=== PATIENT | female | born 1990 | race Caucasian/White ===

== ENCOUNTER 2017-10-10 06:23 | Day surgery (SDC) | payer MEDICARE, SELFPAY ==
[~2017-10-10] VITALS: Ht 170.2 cm; Wt 76.9 kg
[2017-10-10] MEDS ORDERED: LEVSOD75 PO (07:00)
[2017-10-10] MEDS ORDERED: ADVIL100 MG PO (07:00)
== END 2017-10-10 09:51 | disposition home or self-care (01) ==
LOC: ORSCSDS 06:23
PROVIDERS: Obstetrics & Gynecology
PROC: 0U5F4ZZ Destruction of Cul-de-sac, Percutaneous Endoscopic Approach (ICD-10-PCS; principal; 2017-10-10 07:30)
DX: R10.2 Pelvic and perineal pain (principal); J45.909 Unspecified asthma, uncomplicated; E03.9 Hypothyroidism, unspecified; F41.8 Other specified anxiety disorders; Z79.899 Other long term (current) drug therapy; N80.3 Endometriosis of pelvic peritoneum
CPT/HCPCS: J0171; J0690; J1100; J1885; J2250; J2405; J2710; J3010; J7120

== ENCOUNTER → 2017-12-23 | Outpatient (CLI) | payer MEDICARE, SELFPAY ==
[~2017-12-23] MED LIST: ADVIL100 MG PO; LEVSOD75 PO
[2017-12-23 14:40] LABS: BASOPHILS ABSOLUTE AUTO 0.04 K/mm3 (0.00-0.23); BASOPHILS PERCENT AUTO 0 % (0-2); EOSINOPHILS ABSOLUTE AUTO 0.02 K/mm3 (0.00-0.68); EOSINOPHILS PERCENT AUTO 0 % (0-6); Hematocrit 36.9 % (33.0-51.0); Hemoglobin 12.2 g/dL (11.5-16.0); IMMATURE GRAN ABSOLUTE AUTO 0.04 K/mm3 (0.00-0.10); IMMATURE GRAN PERCENT AUTO 0 % (0-1); LYMPHOCYTES ABSOLUTE AUTO 1.26 K/mm3 (0.84-5.20); LYMPHOCYTES PERCENT AUTO 11 % (21-46); MONOCYTES ABSOLUTE AUTO 0.46 K/mm3 (0.16-1.47); MONOCYTES PERCENT AUTO 4 % (4-13); Mean Corpuscular HGB 28.2 pg (26.0-34.0); Mean Corpuscular HGB Conc 33.1 g/dL (31.5-36.5); Mean Corpuscular Volume 85 fL (80-100); Mean Platelet Volume 12.4 fL (9.1-12.4); NEUTROPHILS ABSOLUTE AUTO 9.34 K/mm3 (1.96-9.15); NEUTROPHILS PERCENT AUTO 84 % (41-73); Platelet Count 203 K/mm3 (150-400); RDW Coefficient Variation 13.3 % (11.7-14.2); RDW Standard Deviation 41.8 fL (35.1-46.3); Red Blood Cell Count 4.33 M/mm3 (3.80-5.20); White Blood Cell Count 11.16 K/mm3 (4.00-11.30)
== END ==
LOC: LAB 13:55 → LAB SHORT 13:55
DX: R53.83 Other fatigue (principal)
CPT/HCPCS: 85025

== ENCOUNTER 2019-12-22 09:49 | Day surgery (SDC) | payer BC, MEDICARE ==
[~2019-12-22 09:49] MED LIST changes: +DICY20 PO
== END 2019-12-22 10:18 | disposition home or self-care (01) ==
LOC: ATC 09:49
DX: K62.5 Hemorrhage of anus and rectum (principal); R10.13 Epigastric pain; E03.9 Hypothyroidism, unspecified; F32.9 Major depressive disorder, single episode, unspecified; Z79.899 Other long term (current) drug therapy; Z88.0 Allergy status to penicillin
CPT/HCPCS: 99211

== ENCOUNTER → 2020-11-08 | Outpatient (CLI) | payer BC, MEDICARE, OTHER ==
[2020-11-08 14:56] LABS: Source, Urine Voided
[2020-11-08 18:44] LABS: Amorphous Heavy (0-Heavy); Bacteria Few /hpf; Red Blood Cells, Urine 0-2 /hpf (0-2); Squamous Epithelial Cells Few /hpf (Few); White Blood Cells, Urine 0-2 /hpf (0-5)
== END | disposition home or self-care (01) ==
LOC: LAB SHORT 14:54 → LAB 14:54
PROVIDERS: Physician Assistant Medical
DX: R30.9 Painful micturition, unspecified (principal)
CPT/HCPCS: 81015; 87086

== ENCOUNTER 2021-08-13 16:41 | Emergency (ER) | payer BC, MEDICARE ==
[~2021-08-13] VITALS: Ht 170.2 cm; Wt 79.4 kg
[2021-08-13 17:46] LABS: BASOPHILS ABSOLUTE AUTO 0.02 K/mm3 (0.00-0.23); BASOPHILS PERCENT AUTO 0 % (0-2); EOSINOPHILS PERCENT AUTO 1 % (0-6); Hematocrit 38.3 % (33.0-51.0); Hemoglobin 12.4 g/dL (11.5-16.0); IMMATURE GRAN ABSOLUTE AUTO 0.02 K/mm3 (0.00-0.10); IMMATURE GRAN PERCENT AUTO 0 % (0-1); LYMPHOCYTES ABSOLUTE AUTO 2.09 K/mm3 (0.84-5.20); LYMPHOCYTES PERCENT AUTO 25 % (21-46); MONOCYTES ABSOLUTE AUTO 0.65 K/mm3 (0.16-1.47); MONOCYTES PERCENT AUTO 8 % (4-13); Mean Corpuscular HGB 27.4 pg (26.0-34.0); Mean Corpuscular HGB Conc 32.4 g/dL (31.5-36.5); Mean Corpuscular Volume 85 fL (80-100); Mean Platelet Volume 11.3 fL (9.1-12.4); NEUTROPHILS ABSOLUTE AUTO 5.43 K/mm3 (1.96-9.15); NEUTROPHILS PERCENT AUTO 65 % (41-73); Platelet Count 223 K/mm3 (150-400); RDW Coefficient Variation 13.2 % (11.7-14.2); RDW Standard Deviation 40.5 fL (35.1-46.3); Red Blood Cell Count 4.53 M/mm3 (3.80-5.20); White Blood Cell Count 8.31 K/mm3 (4.00-11.30)
[2021-08-13 18:13] LABS: Alanine Aminotransfer (ALT/SGP 16 U/L (12-78); Albumin, Blood 4.1 g/dL (3.4-5.0); Albumin/Globulin Ratio 1.1 (0.8-1.8); Alk Phos 88 U/L (50-136); Anion Gap 7 mmol/L (6-16); Aspartate Aminotrans (AST/SGOT 13 U/L (12-37); Bilirubin, Total 0.6 mg/dL (0.1-1.0); Blood Urea Nitrogen 8 mg/dL (8-24); Bun/Creatinine Ratio 10.8 (12.0-20.0); CO2, Blood 23 mmol/L (21-32); Calcium, Blood 9.2 mg/dL (8.5-10.1); Chloride, Blood 107 mmol/L (98-108); Creatinine, Blood 0.74 mg/dL (0.40-1.00); Globulin, Blood 3.6 g/dL (2.2-4.0); Glomerular Filtration Rate >60 (60-); Glucose, Blood 97 mg/dL (70-99); Potassium, Blood 3.7 mmol/L (3.5-5.5); Sodium, Blood 137 mmol/L (136-145); Total Protein, Blood 7.7 g/dL (6.4-8.2)
[2021-08-13 18:23] LABS: Source, Urine Clean Catch
[2021-08-13 18:26] LABS: Beta HCG, Quantitative, Serum 22715 mIU/mL (0-3)
[2021-08-13 18:32] LABS: Appearance, Urine Clear (Clear); Bilirubin, Urine Neg (Neg); Blood, Urine Neg (Neg); Color, Urine Yellow (P-Yellow); Glucose Qualitative, Urine Neg (Neg); Ketones, Urine Neg (Neg); Leukocyte Esterase, Urine Neg (Neg); Nitrite, Urine Neg (Neg); Protein, Urine Neg (Neg); Urobilinogen, Urine NORM (Normal)
== END 2021-08-13 19:08 | disposition home or self-care (01) ==
LOC: ER 16:41
PROVIDERS: Physician Assistant
DX: O26.891 Other specified pregnancy related conditions, first trimester (principal); R10.31 Right lower quadrant pain; Z88.0 Allergy status to penicillin; Z79.899 Other long term (current) drug therapy; Z3A.08 8 weeks gestation of pregnancy
CPT/HCPCS: 36415; 76801; 76817; 80053; 81003; 84702; 85025; 86900; 86901; 99284-25

== ENCOUNTER → 2022-06-17 | Outpatient (CLI) | payer OTHER ==
[~2022-06-17] MED LIST changes: +ONDA4ODT MM; +Protonix40 MG PO
[2022-06-17 15:22] LABS: BASOPHILS ABSOLUTE AUTO 0.04 K/mm3 (0.00-0.23); BASOPHILS PERCENT AUTO 0 % (0-2); EOSINOPHILS ABSOLUTE AUTO 0.07 K/mm3 (0.00-0.68); EOSINOPHILS PERCENT AUTO 1 % (0-6); Hematocrit 33.5 % (33.0-51.0); Hemoglobin 11.1 g/dL (11.5-16.0); IMMATURE GRAN ABSOLUTE AUTO 0.11 K/mm3 (0.00-0.10); IMMATURE GRAN PERCENT AUTO 1 % (0-1); LYMPHOCYTES ABSOLUTE AUTO 2.33 K/mm3 (0.84-5.20); LYMPHOCYTES PERCENT AUTO 20 % (21-46); MONOCYTES ABSOLUTE AUTO 0.74 K/mm3 (0.16-1.47); MONOCYTES PERCENT AUTO 6 % (4-13); Mean Corpuscular HGB 30.2 pg (26.0-34.0); Mean Corpuscular HGB Conc 33.1 g/dL (31.5-36.5); Mean Corpuscular Volume 91 fL (80-100); Mean Platelet Volume 11.7 fL (9.1-12.4); NEUTROPHILS ABSOLUTE AUTO 8.41 K/mm3 (1.96-9.15); NEUTROPHILS PERCENT AUTO 72 % (41-73); Platelet Count 216 K/mm3 (150-400); RDW Coefficient Variation 14.4 % (11.7-14.2); RDW Standard Deviation 48.2 fL (35.1-46.3); Red Blood Cell Count 3.68 M/mm3 (3.80-5.20)
== END | disposition home or self-care (01) ==
LOC: LAB 13:46 → LAB SHORT 13:46
PROVIDERS: Advanced Practice Midwife
DX: Z34.03 Encounter for supervision of normal first pregnancy, third trimester (principal)
CPT/HCPCS: 85025

== ENCOUNTER → 2022-07-01 | Outpatient (CLI) | payer OTHER | END | disposition home or self-care (01) | LOC: LAB SHORT 14:30 | DX: Z34.81 Encounter for supervision of other normal pregnancy, first trimester (principal) | CPT/HCPCS: 87081; 87150 ==

== ENCOUNTER → 2023-03-14 | Outpatient (CLI) | payer OTHER ==
[~2023-03-14] MED LIST changes: +IBUP800 PO; +PRENATAL TABLE1 EAC2 PO
[2023-03-17 15:09] LABS: CHLAMYDIA TRACHOMATIS, NAA Negative (Negative); HPV 16 Negative (Negative); HPV 18 Negative (Negative); HPV OTHER HR TYPES Negative (Negative)
== END ==
LOC: LAB SHORT 13:23 → LAB 13:23
PROVIDERS: Advanced Practice Midwife
DX: Z01.419 Encounter for gynecological examination (general) (routine) without abnormal findings (principal); Z11.3 Encounter for screening for infections with a predominantly sexual mode of transmission
CPT/HCPCS: 87491; 87591; 87624; G0145

== ENCOUNTER → 2024-09-20 | Outpatient (CLI) | payer OTHER, MEDICARE ==
[2024-09-21 14:00] LABS: Bacterial Vaginosis PCR Negative (NEGATIVE); Candida Group, PCR NOT DETECTED (NOT DETECT); Candida glabrata-krusei, PCR NOT DETECTED (NOT DETECT)
== END | disposition home or self-care (01) ==
LOC: LAB SHORT 16:30 → LAB 16:30
PROVIDERS: Advanced Practice Midwife
DX: N76.0 Acute vaginitis (principal)
CPT/HCPCS: 81515

== ENCOUNTER 2025-02-02 10:22 | Emergency (ER) | payer OTHER, MEDICARE ==
[~2025-02-02] VITALS: Ht 167.6 cm; Wt 87.5 kg
[2025-02-02] MEDS ORDERED: NS 1,000 ML IV SCH (10:35)
[2025-02-02 11:12] LABS: BASOPHILS ABSOLUTE AUTO 0.04 K/mm3 (0.00-0.23); BASOPHILS PERCENT AUTO 0 % (0-2); EOSINOPHILS ABSOLUTE AUTO 0.07 K/mm3 (0.00-0.68); EOSINOPHILS PERCENT AUTO 1 % (0-6); Hematocrit 33.4 % (33.0-51.0); Hemoglobin 10.9 g/dL (11.5-16.0); IMMATURE GRAN ABSOLUTE AUTO 0.06 K/mm3 (0.00-0.10); IMMATURE GRAN PERCENT AUTO 1 % (0-1); LYMPHOCYTES ABSOLUTE AUTO 1.83 K/mm3 (0.84-5.20); LYMPHOCYTES PERCENT AUTO 17 % (21-46); MONOCYTES ABSOLUTE AUTO 0.56 K/mm3 (0.16-1.47); MONOCYTES PERCENT AUTO 5 % (4-13); Mean Corpuscular HGB Conc 32.6 g/dL (31.5-36.5); Mean Corpuscular Volume 87 fL (80-100); NEUTROPHILS ABSOLUTE AUTO 8.05 K/mm3 (1.96-9.15); NEUTROPHILS PERCENT AUTO 76 % (41-73); NRBC ABSOLUTE 0.00 K/mm3 (0.00-0.02); NRBC Auto 0.0 /100 WBC (0.0-0.2); Platelet Count 180 K/mm3 (150-400); RDW Coefficient Variation 13.9 % (11.7-14.2); RDW Standard Deviation 44.0 fL (35.1-46.3)
[2025-02-02 11:47] LABS: Alanine Aminotransfer (ALT/SGP 13.0 U/L (12-78); Albumin, Blood 2.7 g/dL (3.4-5.0); Albumin/Globulin Ratio 0.7 (0.8-1.8); Anion Gap 8.0 mmol/L (3-11); Aspartate Aminotrans (AST/SGOT 13.0 U/L (12-37); Bilirubin, Total 0.4 mg/dL (0.1-1.0); Blood Urea Nitrogen 9.0 mg/dL (8-24); CO2, Blood 25.0 mmol/L (21-32); Calcium, Blood 8.8 mg/dL (8.5-10.1); Chloride, Blood 106.0 mmol/L (98-108); Creatinine, Blood 0.72 mg/dL (0.40-1.00); Globulin, Blood 4.0 g/dL (2.2-4.0); Glucose, Blood 83.0 mg/dL (70-99); Potassium, Blood 3.7 mmol/L (3.5-5.5); Sodium, Blood 135.0 mmol/L (136-145); Total Protein, Blood 6.7 g/dL (6.4-8.2)
[2025-02-02 15:04] LABS: Source, Urine Clean Catch
[2025-02-02 15:21] LABS: Bilirubin, Urine Neg (Neg); Glucose Qualitative, Urine Neg (Neg); Ketones, Urine Neg (Neg); Leukocyte Esterase, Urine Neg (Neg); Protein, Urine Neg (Neg); Specific Gravity, Urine 1.005 (1.003-1.022); Urobilinogen, Urine NORM (Normal)
[2025-02-02 15:29] LABS: Color, Urine Pale Yellow (P-Yellow)
[2025-02-02 16:15] VITALS: BP 90/56
[2025-02-02 17:39] LABS: Influenza A, PCR NEGATIVE (NEGATIVE); Influenza B, PCR NEGATIVE (NEGATIVE); Resp Syncytial Virus, PCR NEGATIVE (NEGATIVE); SARS-Cov-2 (COVID-19) PCR, MMC NEGATIVE (NEGATIVE)
== END 2025-02-02 17:08 | disposition home or self-care (01) ==
LOC: ER 10:22
PROVIDERS: Emergency Medicine
DX: O99.891 Other specified diseases and conditions complicating pregnancy (principal); R55 Syncope and collapse; R42 Dizziness and giddiness; O99.283 Endocrine, nutritional and metabolic diseases complicating pregnancy, third trimester; E03.9 Hypothyroidism, unspecified; Z3A.28 28 weeks gestation of pregnancy; Z88.0 Allergy status to penicillin; Z79.890 Hormone replacement therapy
CPT/HCPCS: 71260; 76815; 80053; 81003; 83880; 84484; 85025; 85379; 87637; 93005; 93010; 96360; 99285-25; J7030; J7120; Q9967

== ENCOUNTER 2025-02-12 20:23 | Emergency (ER) | payer OTHER, MEDICARE ==
[~2025-02-12] VITALS: Ht 167.6 cm; Wt 88.0 kg
[2025-02-12 20:51] LABS: BASOPHILS ABSOLUTE AUTO 0.03 K/mm3 (0.00-0.23); BASOPHILS PERCENT AUTO 0 % (0-2); EOSINOPHILS ABSOLUTE AUTO 0.08 K/mm3 (0.00-0.68); EOSINOPHILS PERCENT AUTO 1 % (0-6); Hematocrit 35.4 % (33.0-51.0); Hemoglobin 11.7 g/dL (11.5-16.0); IMMATURE GRAN ABSOLUTE AUTO 0.07 K/mm3 (0.00-0.10); IMMATURE GRAN PERCENT AUTO 1 % (0-1); LYMPHOCYTES ABSOLUTE AUTO 2.05 K/mm3 (0.84-5.20); LYMPHOCYTES PERCENT AUTO 19 % (21-46); MONOCYTES ABSOLUTE AUTO 0.75 K/mm3 (0.16-1.47); MONOCYTES PERCENT AUTO 7 % (4-13); Mean Corpuscular HGB Conc 33.1 g/dL (31.5-36.5); Mean Corpuscular Volume 87 fL (80-100); NEUTROPHILS ABSOLUTE AUTO 8.05 K/mm3 (1.96-9.15); NEUTROPHILS PERCENT AUTO 73 % (41-73); NRBC ABSOLUTE 0.00 K/mm3 (0.00-0.02); NRBC Auto 0.0 /100 WBC (0.0-0.2); Platelet Count 176 K/mm3 (150-400); RDW Coefficient Variation 13.7 % (11.7-14.2); RDW Standard Deviation 42.8 fL (35.1-46.3)
[2025-02-12] MEDS ORDERED: Lidocaine 2% Viscous Soln 15 ML UDC PO ONE (20:55)
[2025-02-12 21:09] LABS: pH Blood Venous 7.53 (7.34-7.37)
[2025-02-12] MEDS ORDERED: NS 1,000 ML IV SCH (21:15)
[2025-02-12 21:30] LABS: Magnesium, Blood 1.5 mg/dL (1.6-2.4)
[2025-02-12 21:36] LABS: Alanine Aminotransfer (ALT/SGP 11.0 U/L (12-78); Albumin, Blood 2.7 g/dL (3.4-5.0); Albumin/Globulin Ratio 0.7 (0.8-1.8); Anion Gap 10.0 mmol/L (3-11); Aspartate Aminotrans (AST/SGOT 16.0 U/L (12-37); Beta HCG, Quantitative, Serum 14831.0 mIU/mL (0-3); Bilirubin, Total 0.3 mg/dL (0.1-1.0); Blood Urea Nitrogen 5.0 mg/dL (8-24); CO2, Blood 21.0 mmol/L (21-32); Calcium, Blood 8.9 mg/dL (8.5-10.1); Chloride, Blood 109.0 mmol/L (98-108); Creatinine, Blood 0.49 mg/dL (0.40-1.00); Globulin, Blood 4.1 g/dL (2.2-4.0); Glucose, Blood 96.0 mg/dL (70-99); Phosphorus, Blood 2.2 mg/dL (2.5-4.9); Potassium, Blood 3.7 mmol/L (3.5-5.5); Sodium, Blood 136.0 mmol/L (136-145); Total Protein, Blood 6.8 g/dL (6.4-8.2)
[2025-02-12 22:34] LABS: Source, Urine Clean Catch
[2025-02-12 22:40] LABS: Bilirubin, Urine Neg (Neg); Glucose Qualitative, Urine Neg (Neg); Ketones, Urine Neg (Neg); Leukocyte Esterase, Urine Neg (Neg); Protein, Urine 1+ (Neg); Specific Gravity, Urine 1.020 (1.003-1.022); Urobilinogen, Urine 1+ (Normal)
[2025-02-12] MEDS ORDERED: Magnesium Sulf 2 GM/Water 50ML 50 ML IV ONE (22:45)
[2025-02-12 22:59] LABS: Color, Urine Yellow (P-Yellow); Red Blood Cells, Urine Not Seen /hpf (0-2); White Blood Cells, Urine 0-2 /hpf (0-5)
[2025-02-13 01:30] VITALS: BP 106/70
[2025-02-13] MEDS ORDERED: CEPH500 PO (01:47)
[2025-02-13] MEDS ORDERED: FAMO20 PO (01:47)
[2025-02-13] MEDS ORDERED: ALMACONE SUSPE355 ML PO (01:47)
== END 2025-02-13 01:50 | disposition home or self-care (01) ==
LOC: ER 20:23
PROVIDERS: Emergency Medicine
DX: K21.9 Gastro-esophageal reflux disease without esophagitis (principal); E86.0 Dehydration; E83.42 Hypomagnesemia; E83.39 Other disorders of phosphorus metabolism; Z59.89 Other problems related to housing and economic circumstances; R82.71 Bacteriuria; Z88.0 Allergy status to penicillin; Z79.899 Other long term (current) drug therapy
CPT/HCPCS: 71045; 80053; 81001; 82803; 83690; 83735; 83880; 84100; 84484; 84702; 85025; 93005; 93010; 96365; 96366; 96375; 99285-25; A9270; J3475; J7030

== ENCOUNTER 2025-04-13 04:53 | Inpatient (IN) | payer OTHER, MEDICARE ==
[~2025-04-13] VITALS: Ht 167.6 cm; Wt 90.9 kg
[2025-04-13] VITALS (19 sets, daily range): BP systolic 97–137; BP diastolic 50–83
[~2025-04-13 04:53] MED LIST changes: +ALMACONE SUSPE355 ML PO; +CEPH500 PO; +FAMO20 PO
[2025-04-13] MEDS ORDERED: Metoclopramide HCl 5MG / ML 2ML Vial IV SCH (05:05)
[2025-04-13] MEDS ORDERED: CeFAZolin Sodium 2,000 MG in NS 100 ML IV SCH (05:05)
[2025-04-13] MEDS ORDERED: Citric Acid/Sodium Citrate 30 ML BTL PO SCH (05:05)
[2025-04-13] MEDS ORDERED: Carboprost Tromethamine 250 MCG/ML 1ML Amp IM PRN (05:30)
[2025-04-13] MEDS ORDERED: Oxytocin 10 Unit / ML Vial IM PRN (05:30)
[2025-04-13] MEDS ORDERED: OXYTOCIN/RINGER'S LACTATE 500 ML IV PRN (05:30)
[2025-04-13] MEDS ORDERED: Tranexamic Acid 100 ML IV PRN (05:30)
[2025-04-13] MEDS ORDERED: Methylergonovine Maleate 0.2MG / ML 1ML Amp IM PRN (05:30)
[2025-04-13] MEDS ORDERED: Ondansetron HCl 2 MG / ML 2ML Vial IV PRN ×2 (05:30→08:55)
[2025-04-13] MEDS ORDERED: LEVSOD100 PO (05:55)
[2025-04-13] MEDS ORDERED: PRENATAL TABLE1 EAC2 PO (05:56)
[2025-04-13 06:14] LABS: BASOPHILS ABSOLUTE AUTO 0.03 K/mm3 (0.00-0.23); BASOPHILS PERCENT AUTO 0 % (0-2); EOSINOPHILS ABSOLUTE AUTO 0.08 K/mm3 (0.00-0.68); EOSINOPHILS PERCENT AUTO 1 % (0-6); Hematocrit 32.4 % (33.0-51.0); Hemoglobin 10.5 g/dL (11.5-16.0); IMMATURE GRAN ABSOLUTE AUTO 0.06 K/mm3 (0.00-0.10); IMMATURE GRAN PERCENT AUTO 1 % (0-1); LYMPHOCYTES ABSOLUTE AUTO 2.63 K/mm3 (0.84-5.20); LYMPHOCYTES PERCENT AUTO 24 % (21-46); MONOCYTES ABSOLUTE AUTO 0.70 K/mm3 (0.16-1.47); MONOCYTES PERCENT AUTO 6 % (4-13); Mean Corpuscular HGB Conc 32.4 g/dL (31.5-36.5); Mean Corpuscular Volume 84 fL (80-100); NEUTROPHILS ABSOLUTE AUTO 7.53 K/mm3 (1.96-9.15); NEUTROPHILS PERCENT AUTO 68 % (41-73); NRBC ABSOLUTE 0.00 K/mm3 (0.00-0.02); NRBC Auto 0.0 /100 WBC (0.0-0.2); Platelet Count 180 K/mm3 (150-400); RDW Coefficient Variation 14.3 % (11.7-14.2); RDW Standard Deviation 43.2 fL (35.1-46.3)
[2025-04-13] MEDS ORDERED: FentaNYL Citrate 50 MCG/ML 2 ML Injection ONE (07:31)
[2025-04-13] MEDS ORDERED: Metoclopramide HCl 5MG / ML 2ML Vial ONE (07:39)
[2025-04-13] MEDS ORDERED: Ondansetron HCl 2 MG / ML 2ML Vial ONE (07:39)
[2025-04-13] MEDS ORDERED: Dexamethasone Sod Phos 10 MG/ML 1ML VIAL ONE (07:39)
[2025-04-13] MEDS ORDERED: Oxytocin 10 Unit / ML Vial ONE (07:47)
[2025-04-13] MEDS ORDERED: Phenylephrine HCl 100 MCG/ML-NS 10MLSYR (1MG/10ML) ONE (07:53)
--- NOTE | 2025-04-13 08:06 | NUR ---
04/13/25 0806 DORCAS WALDRON VIABLE MALE BORN AT 0754, APGARS 9/9
[2025-04-13] MEDS ORDERED: Glycopyrrolate 0.2 MG/ML 5ML VIAL ONE (08:22)
[2025-04-13] MEDS ORDERED: Ketorolac Tromethamine 30mg Vial ONE (08:24)
[2025-04-13] MEDS ORDERED: OxyCODONE 5 mg/Acetamin 325 mg TABLET PO PRN (08:45)
[2025-04-13] MEDS ORDERED: Magnesium Hydroxide Conc 10 ML UDC PO PRN (08:45)
[2025-04-13] MEDS ORDERED: OXYTOCIN/RINGER'S LACTATE 500 ML IV SCH (08:45)
[2025-04-13] MEDS ORDERED: Rho(D) Immune Globulin 300 MCG / SYR IM ONE (08:50)
[2025-04-13] MEDS ORDERED: Morphine Sulfate 4 MG/1 ML Injection IV PRN (08:55)
[2025-04-13] MEDS ORDERED: Ketorolac Tromethamine 30mg Vial IV SCH (09:00)
[2025-04-13] MEDS ORDERED: Prenatal Vit/FE Fumarate/FA 1 Tab PO SCH (09:00)
[2025-04-13 13:33] LABS: Alanine Aminotransfer (ALT/SGP 9.0 U/L (12-78); Albumin, Blood 2.6 g/dL (3.4-5.0); Albumin/Globulin Ratio 0.6 (0.8-1.8); Anion Gap 9.0 mmol/L (3-11); Aspartate Aminotrans (AST/SGOT 15.0 U/L (12-37); Bilirubin, Total 0.4 mg/dL (0.1-1.0); Blood Urea Nitrogen 7.0 mg/dL (8-24); CO2, Blood 21.0 mmol/L (21-32); Calcium, Blood 8.9 mg/dL (8.5-10.1); Chloride, Blood 109.0 mmol/L (98-108); Creatinine, Blood 0.61 mg/dL (0.40-1.00); Globulin, Blood 4.0 g/dL (2.2-4.0); Glucose, Blood 86.0 mg/dL (70-99); Potassium, Blood 3.5 mmol/L (3.5-5.5); Sodium, Blood 135.0 mmol/L (136-145); Total Protein, Blood 6.6 g/dL (6.4-8.2)
[2025-04-13] MEDS ORDERED: Ketorolac Tromethamine 30mg Vial IV PRN (14:00)
[2025-04-14 05:42] VITALS: BP 106/59
[2025-04-14 06:58] LABS: BASOPHILS ABSOLUTE AUTO 0.04 K/mm3 (0.00-0.23); BASOPHILS PERCENT AUTO 0 % (0-2); EOSINOPHILS ABSOLUTE AUTO 0.06 K/mm3 (0.00-0.68); EOSINOPHILS PERCENT AUTO 0 % (0-6); Hematocrit 29.1 % (33.0-51.0); Hemoglobin 9.4 g/dL (11.5-16.0); IMMATURE GRAN ABSOLUTE AUTO 0.08 K/mm3 (0.00-0.10); IMMATURE GRAN PERCENT AUTO 1 % (0-1); LYMPHOCYTES ABSOLUTE AUTO 2.67 K/mm3 (0.84-5.20); LYMPHOCYTES PERCENT AUTO 19 % (21-46); MONOCYTES ABSOLUTE AUTO 0.97 K/mm3 (0.16-1.47); MONOCYTES PERCENT AUTO 7 % (4-13); Mean Corpuscular HGB Conc 32.3 g/dL (31.5-36.5); Mean Corpuscular Volume 86 fL (80-100); NEUTROPHILS ABSOLUTE AUTO 10.60 K/mm3 (1.96-9.15); NEUTROPHILS PERCENT AUTO 74 % (41-73); NRBC ABSOLUTE 0.00 K/mm3 (0.00-0.02); NRBC Auto 0.0 /100 WBC (0.0-0.2); Platelet Count 174 K/mm3 (150-400); RDW Coefficient Variation 14.2 % (11.7-14.2); RDW Standard Deviation 44.2 fL (35.1-46.3)
[2025-04-14 07:39] VITALS: BP 102/58
[2025-04-14 13:12] VITALS: BP 103/64
--- NOTE | 2025-04-14 15:22 | NUR ---
PT STATES SHE HAS DISIBILITY FOR PTSD, ANXIETY, DEPRESSION. SHE STATES THAT SHE HAS HAD THOUGHTS AND PLANS TO HARM HERSELF WELL OF KILLING HERSELF IN THE LAST MONTH. PT DENIES INTENT BECAUSE OF THINKING OF HER CHILDREN. STATES SHE HAS TO FIGHT THE IMPULSIVITY OF SELF HARM AND THAT WHEN SHE THINKS OF HER CHILDREN SHE WOULD NOT KILL HERSELF.
--- NOTE | 2025-04-14 15:43 | NUR ---
CALLED AND UPDATED DR LANDAVERDE ON [facility] SCORE OF 20. DR LANDAVERDE CONFIRMED SHE HAS A SCHEDULED APPOINTMENT IN TWO WEEKS, AND STATES SHE WILL ROUND ON PT IN THE MORNING.
[2025-04-14 16:24] VITALS: BP 99/59
[2025-04-14 20:12] VITALS: BP 106/64
[2025-04-15 00:17] VITALS: BP 106/62
[2025-04-15 04:04] VITALS: BP 109/64
[2025-04-15 07:33] VITALS: BP 106/68
--- NOTE | 2025-04-15 11:02 | NUR ---
PT DESIRES TO DISCHARGE TO HOME. IS UPSET ABOUT HAVING A SITTER. STATES "I ANSWERED THOSE QUESTIONS HONESTLY AND THEN ALL OF THIS HAPPENED. I'M NOT GOING TO HARM MYSELF OR MY BABY." DR LANDAVERDE CALLED AND UPDATED ON HOW PT IS FEELING AND THAT PT WOULD LIKE TO GO HOME. DR LANDAVERDE WILL BE COMING IN TO SEE PT AND MAKE A SAFETY PLAN. PT WILL ALSO HAVE AN APPT TO SEE DR LANDAVERDE IN THE OFFICE WITHIN 1 WEEK.
--- NOTE | 2025-04-15 11:30 | NUR ---
DR LANDAVERDE AT BEDSIDE TALKING WITH PT. PT NOT CURRENTLY HAVING SUICIDAL IDEATION AND FEELS COMFORTABLE GOING HOME. PT HAS FAMILY SUPPORT AND UNDERSDANDS THE S/S OF PPD, WILL SEE DR LANDAVERDE ON FRIDAY IN THE OFFICE. IF S/S DEPRESSION INCREASE PT TO CALL DR LANDAVERDE SOONER. ROOPA FROM [employer] TO CALL PT AND MAKE AN APPT WELL. PT IS CURRENTLY CLEARED FROM 1:1 SITTER AND IS CLEARED FOR DISCHARGE TO HOME WITH INFANT PER DR LANDAVERDE ORDER. PT UNDERSTANDS DISCHARGE INSTRUCTIONS, WILL CALL [facility] WITH ANY CONCERNS AND/OR DR LANDAVERDE.
[2025-04-15 11:43] VITALS: BP 112/63
== END 2025-04-15 12:05 | disposition home or self-care (01) | DRG 785 ==
LOC: BC 05:02
PROVIDERS: ADMIT Obstetrics & Gynecology
PROC: 0UT70ZZ Resection of Bilateral Fallopian Tubes, Open Approach (ICD-10-PCS; 2025-04-13)
PROC: 10D00Z1 Extraction of Products of Conception, Low, Open Approach (ICD-10-PCS; principal; 2025-04-13 07:30)
DX: O34.211 Maternal care for low transverse scar from previous cesarean delivery (principal); O99.284 Endocrine, nutritional and metabolic diseases complicating childbirth; G90.A Postural orthostatic tachycardia syndrome [POTS]; Z3A.38 38 weeks gestation of pregnancy; Z37.0 Single live birth; E03.9 Hypothyroidism, unspecified; Z79.890 Hormone replacement therapy
CPT/HCPCS: 36415; 80053; 85025; 86850; 86900; 86901; 86923; 88302; A9270; J1100; J1885; J2371; J2405; J2590; J2765; J3010; J7120